=== PATIENT | male | born 1940 | race Caucasian/White ===

== ENCOUNTER 2019-10-21 12:01 | Emergency (ER) | payer MEDICARE ==
[~2019-10-21] VITALS: Ht 172.7 cm; Wt 94.6 kg
[2019-10-21 12:58] LABS: BASOPHILS # (AUTO) 0.1 10^3/uL (0.0-0.1); BASOPHILS % (AUTO) 1 % (0-10); EOSINOPHILS # (AUTO) 0.1 10^3/uL (0.0-0.3); EOSINOPHILS % (AUTO) 1 % (0-10); HEMATOCRIT 45 % (40-54); LYMPHOCYTES % (AUTO) 33 % (12-44); MEAN CORPUSCULAR HEMOGLOBIN 31 PG (25-34); MEAN CORPUSCULAR HGB CONC 33 G/DL (32-36); MEAN CORPUSCULAR VOLUME 94 FL (80-99); MEAN PLATELET VOLUME 10.7 FL (7.4-10.4); MONOCYTES # (AUTO) 0.6 X 10^3 (0.0-1.0); MONOCYTES % (AUTO) 5 % (0-12); NEUTROPHILS # (AUTO) 7.6 X 10^3 (1.8-7.8); NEUTROPHILS % (AUTO) 61 % (42-75); PLATELET COUNT 251 10^3/uL (130-400); WHITE BLOOD COUNT 12.4 10^3/uL (4.3-11.0)
[2019-10-21] MEDS ORDERED: LIDOCAINE 2% VISCOUS 15 ML UDC PO ONE (13:00)
[2019-10-21] MEDS ORDERED: FAMOTIDINE 20MG/2ML IV (PEPCID) IVP ONE (13:00)
--- NOTE | 2019-10-21 13:14 | ED General ---
General Chief Complaint: Abdominal/GI Problems Stated Complaint: HEARTBURN Source of Information: Patient History of Present Illness Date Seen by Provider: Oct 21, 2019 Time Seen by Provider: 12:30 Initial Comments Patient is an 79-year-old male with history of coronary artery disease who comes to the ER today complaining of reflux symptoms. He states he has had this problem in the past. Last evening, after eating, he had onset of severe belching and sour taste in his mouth along with some burning in the throat and mouth. The episode lasted about 30 minutes to 1 hour and did improve. He had an additional episode when he awoke this morning after eating breakfast. He denies chest pain. No fever, chills, cough. No shortness of breath. No abdominal pain. No nausea or vomiting. He has been at baseline health aside from these 2 episodes. Allergies and Home Medications Allergies Coded Allergies: tetanus and diphtheria toxoids (Verified Allergy, Unknown, 10/21/19) Home Medications Esomeprazole Magnesium 40 Mg Cap, 40 MG PO BID Take 1 tablet twice a day before meals for 7 days. Stop after that. You may repeat this in the future as needed for reflux symptoms. Prescribed by: SILVIANO HOANG on 10/21/19 7603 Patient Home Medication List Home Medication List Reviewed: Yes Review of Systems Review of Systems Constitutional: no symptoms reported EENTM: no symptoms reported Respiratory: no symptoms reported Cardiovascular: no symptoms reported Gastrointestinal: see HPI Musculoskeletal: no symptoms reported Skin: no symptoms reported Psychiatric/Neurological: Anxiety All Other Systems Reviewed Negative Unless Noted: Yes Past Hwwkekq-Flwsen-Skilks Hx Patient Social History Recent Foreign Travel: No Contact w/Someone Who Travel: No Physical Exam Vital Signs Capillary Refill : Height, Weight, BMI Height: '" Weight: lbs. oz. kg; BMI Method: General Appearance: No Apparent Distress, WD/WN HEENT: PERRL/EOMI Neck: Full Range of Motion, Normal Inspection Respiratory: Lungs Clear, Other (healed midline sternotomy incision) Cardiovascular: Regular Rate, Rhythm, No Edema Gastrointestinal: Normal Bowel Sounds, Non Tender, Soft Extremity: Normal Capillary Refill Neurologic/Psychiatric: Alert, Oriented x3 Skin: Normal Color, Warm/Dry Progress/Results/Core Measures Suspected Sepsis SIRS Temperature: Pulse: Respiratory Rate: Laboratory Tests 10/21/19 12:35: White Blood Count 12.4H Blood Pressure / Mean: Laboratory Tests 10/21/19 12:35: Platelet Count 251 10/21/19 13:00: Creatinine 1.36H, Total Bilirubin 0.4 Results/Orders Lab Results Laboratory Tests Test 10/21/19 12:35 10/21/19 13:00 Range/Units White Blood Count 12.4 H 4.3-11.0 10^3/uL Red Blood Count 4.83 4.35-5.85 10^6/uL Hemoglobin 15.0 13.3-17.7 G/DL Hematocrit 45 40-54 % Mean Corpuscular Volume 94 80-99 FL Mean Corpuscular Hemoglobin 31 25-34 PG Mean Corpuscular Hemoglobin Concent 33 32-36 G/DL Red Cell Distribution Width 13.0 10.0-14.5 % Platelet Count 251 130-400 10^3/uL Mean Platelet Volume 10.7 H 7.4-10.4 FL Neutrophils (%) (Auto) 61 42-75 % Lymphocytes (%) (Auto) 33 12-44 % Monocytes (%) (Auto) 5 0-12 % Eosinophils (%) (Auto) 1 0-10 % Basophils (%) (Auto) 1 0-10 % Neutrophils # (Auto) 7.6 1.8-7.8 X 10^3 Lymphocytes # (Auto) 4.0 1.0-4.0 X 10^3 Monocytes # (Auto) 0.6 0.0-1.0 X 10^3 Eosinophils # (Auto) 0.1 0.0-0.3 10^3/uL Basophils # (Auto) 0.1 0.0-0.1 10^3/uL Sodium Level 143 135-145 MMOL/L Potassium Level 4.6 3.6-5.0 MMOL/L Chloride Level 106 98-107 MMOL/L Carbon Dioxide Level 23 21-32 MMOL/L Anion Gap 14 5-14 MMOL/L Blood Urea Nitrogen 41 H 7-18 MG/DL Creatinine 1.36 H 0.60-1.30 MG/DL Estimat Glomerular Filtration Rate 50 BUN/Creatinine Ratio 30 Glucose Level 131 H 70-105 MG/DL Calcium Level 10.0 8.5-10.1 MG/DL Corrected Calcium 9.7 8.5-10.1 MG/DL Total Bilirubin 0.4 0.1-1.0 MG/DL Aspartate Amino Transf (AST/SGOT) 20 5-34 U/L Alanine Aminotransferase (ALT/SGPT) 18 0-55 U/L Alkaline Phosphatase 61 40-136 U/L Troponin I < 0.30 <0.30 NG/ML Total Protein 7.2 6.4-8.2 GM/DL Albumin 4.4 3.2-4.5 GM/DL My Orders Orders - SILVIANO HOANG DO Ed Iv/Invasive Line Start (10/21/19 12:48) Cbc With Automated Diff (10/21/19 12:48) Comprehensive Metabolic Panel (10/21/19 12:48) Troponin I Fs (10/21/19 12:48) Ekg Tracing (10/21/19 12:48) Chest 1 View Ap/Pa Only (10/21/19 12:49) Lidocaine 2% Viscous 15 Ml (Xylocaine Vi (10/21/19 13:00) Famotidine Injection (Pepcid Injection) (10/21/19 13:00) Antacid Suspension (Mylanta Suspension (10/21/19 13:15) Medications Given in ED Current Medications Medications Dose Ordered Sig/Adilene Route Start Time Stop Time Status Last Admin Dose Admin Al Hydrox/Mg Hydrox/Simethicone 30 ml ONCE ONCE PO 10/21/19 13:15 10/21/19 13:16 DC 10/21/19 13:13 30 ML Famotidine 20 mg ONCE ONCE IVP 10/21/19 13:00 10/21/19 13:01 DC 10/21/19 13:13 20 MG Lidocaine HCl 15 ml ONCE ONCE PO 10/21/19 13:00 10/21/19 13:01 DC 10/21/19 13:13 15 ML Vital Signs/I&O Capillary Refill : Progress Note : Time: 11:35 Progress Note Patient is seen and examined. His abdomen is soft and nontender. He denies chest pain. No shortness of breath. EKG is completed per nursing staff and is free from any findings concerning for ischemia. We will check troponin along with chest x-ray and abdominal pain labs. Will give GI cocktail and Pepcid for symptom relief. 13:35: All results are reviewed and discussed with the patient. Troponin is not elevated. EKG is reassuring. Patient was given some Pepcid and a GI cocktail in the ER and his symptoms are 100% resolved. He feels normal at this time. Given the chronicity of his symptoms, a single troponin is adequate. He is discharged home. He is given Nexium to take twice a day over the next 5 or 7 days. After that, he will stop the medication but may repeat this as needed. I recommended he take some Tums with each meal and use Maalox as needed. Avoid foods that aggravate his symptoms. Follow-up with his primary doctor or come back to the ER for any new or worsening symptoms. Patient was very thankful and appreciative of care received today. He was agreeable with the discharge plan of care. ECG Initial ECG Impression Date: Oct 21, 2019 Initial ECG Impression Time: 12:35 Initial ECG Rate: 77 Initial ECG Rhythm: Normal Sinus Departure Impression Primary Impression: Reflux esophagitis Disposition: 01 HOME, SELF-CARE Condition: Improved Departure-Patient Inst. Referrals: SELF,DESIREE SAUER (PCP/Family) Primary Care Physician Scripts Esomeprazole Magnesium (Nexium) 40 Mg Cap 40 MG PO BID for 7 Days, #60 CAP Take 1 tablet twice a day before meals for 7 days. Stop after that. You may repeat this in the future as needed for reflux symptoms. Prov: SILVIANO HOANG DO 10/21/19 SILVIANO HOANG DO Oct 21, 2019 13:14
[2019-10-21] MEDS ORDERED: ANTACID SUSP 30 ML UDC (MYLANTA) PO ONE (13:15)
--- NOTE | 2019-10-21 13:20 | Diagnostic Imaging Report ---
INDICATION: Chest pain. FINDINGS: The patient is status post previous sternotomy and coronary artery bypass grafting. Central pulmonary vascularity appears appropriate. There is mild elevation of left hemidiaphragm with some minimal left base atelectasis or infiltrate. There is no effusion. There is no pneumothorax. IMPRESSION: 1. Operative changes of previous bypass grafting. 2. Pulmonary vascularity appears appropriate. 3. Mild left hemidiaphragm elevation with mild left base atelectasis or infiltrate. Dictated by: Dictated on workstation # [id number]
[2019-10-21 13:23] LABS: ALANINE AMINOTRANSFERASE 18 U/L (0-55); ALBUMIN 4.4 GM/DL (3.2-4.5); ALKALINE PHOSPHATASE 61 U/L (40-136); BILIRUBIN,TOTAL 0.4 MG/DL (0.1-1.0); BUN/CREATININE RATIO 30; CARBON DIOXIDE 23 MMOL/L (21-32); CHLORIDE 106 MMOL/L (98-107); CREATININE SERUM 1.36 MG/DL (0.60-1.30); GFR ESTIMATED 50; GLUCOSE 131 MG/DL (70-105); POTASSIUM 4.6 MMOL/L (3.6-5.0); SODIUM 143 MMOL/L (135-145); TOTAL PROTEIN 7.2 GM/DL (6.4-8.2)
[2019-10-21] MEDS ORDERED: NF-ESOM40C PO (13:34)
[2019-10-21 13:53] VITALS: BP 152/86
== END 2019-10-21 13:53 | disposition home or self-care (01) ==
LOC: ER FS 12:04
DX: K21.0 Gastro-esophageal reflux disease with esophagitis (principal); Z88.7 Allergy status to serum and vaccine
CPT/HCPCS: 36415; 71045; 80053; 84484; 85025; 93005

== ENCOUNTER 2022-01-23 09:06 | Emergency (ER) | payer MEDICARE ==
[~2022-01-23 09:06] MED LIST: NF-ESOM40C PO
[2022-01-23] MEDS ORDERED: TETRACAINE 0.5% OPHTH SOLN 4 ML BTL (SINGLE DOSE ONLY) ONE (09:22)
[2022-01-23] MEDS ORDERED: FLUORESCEIN (FLUOR-I-STRIPS) 1 MG STRP ONE (09:22)
--- NOTE | 2022-01-23 09:23 | ED EENT ---
History of Present Illness General Chief Complaint: Eye Problems Stated Complaint: RIGHT EYE SOMETHING IN IT Source: patient Exam Limitations: no limitations History of Present Illness Date Seen by Provider: Jan 23, 2022 Time Seen by Provider: 09:08 Initial Comments 81-year-old male with no pertinent past medical history coming in feeling like he has something stuck in his right eye. He was moving some cobwebs above his head with a broom, and felt something on his right eye. This occurred shortly prior to arrival. Having constant, sharp pain in his right eye which is very irritating. Nothing really seems to make it better or worse. He states he feels like it is under his upper eyelid. He tried to flip his eyelid but was unable to. Does not wear contacts. Otherwise denies any other acute complaints including any blurry vision. Allergies and Home Medications Allergies Coded Allergies: tetanus and diphtheria toxoids (Verified Allergy, Unknown, 10/21/19) Patient Home Medication List Home Medication List Reviewed: Yes Esomeprazole Magnesium (Nexium) 40 Mg Cap, 40 MG PO BID Prescribed by: SILVIANO HOANG on 10/21/19 4234 Review of Systems Review of Systems Constitutional: No fever Eyes: See HPI Ears: No Symptoms Reported Nose: no symptoms reported Mouth: no symptoms reported Throat: no symptoms reported Respiratory: no symptoms reported Cardiovascular: no symptoms reported Gastrointestinal: no symptoms reported Musculoskeletal: no symptoms reported Skin: no symptoms reported Neurological: No Symptoms Reported Hematologic/Lymphatic: No Symptoms Reported Immunological/Allergic: no symptoms reported All Other Systems Reviewed Negative Unless Noted: Yes Past Etwolyn-Omlqhm-Udmgol Hx Patient Social History Tobacco Use?: No Seasonal Allergies Seasonal Allergies: No Past Medical History Surgeries: Yes Cardiac Respiratory: No Cardiac: Yes High Cholesterol, Hypertension Neurological: No Genitourinary: No Gastrointestinal: Yes Gastroesophageal Reflux Musculoskeletal: No Endocrine: No HEENT: No Cancer: No Psychosocial: Yes Anxiety Integumentary: No Blood Disorders: No Physical Exam Height, Weight, BMI Height: '" Weight: lbs. oz. kg; 31.00 BMI Method: General Appearance: WD/WN, no apparent distress Eyes: right eye other (Small speck of dark material on the underside of his right eyelid flushed away, small amount of uptake of fluorescein in the anterior portion of the eye consistent with a small corneal abrasion); left eye normal inspection; bilateral eye PERRL, bilateral eye EOMI Ears: bilateral ear auricle normal Nose: normal inspection Mouth/Throat: normal mouth inspection, pharynx normal Neck: non-tender, full range of motion, supple, normal inspection Cardiovascular: regular rate, rhythm, no edema, no murmur Respiratory: chest non-tender, lungs clear, normal breath sounds, no resp iratory distress, no accessory muscle use Gastrointestinal: normal bowel sounds, non tender, soft; No guarding Neurologic/Psychiatric: no motor/sensory deficits, alert, normal mood/affect Skin: normal color, warm/dry Procedures/Interventions Eye : Location: right eye Eye FB Removal: removal w/ cotton swab Eye Debridement: Other (saline flush x2) Eye Irrigated w/ Saline (ccs): 20 Anesthesia (gtts): Tetracaine Progress/Procedure Conclusion Foreign body removed and patient symptoms improved Progress/Results/Core Measures Results/Orders My Orders Orders - CHERYL MEDINA MD Fluorescein Strips ([id number]) (01/23/22 09:30) Tetracaine 0.5% Ophth Zully Sdv (Tetracai (01/23/22 09:30) Tetracaine 0.5% Ophth Zully Sdv (Tetracai (01/23/22 09:22) Fluorescein Strips ([id number]) (01/23/22 09:22) Progress Progress Note : Progress Note 81-year-old male with above history coming in due to foreign body sensation in the right eye. The eye was cleaned and lid flipped with a foreign body that was very small being seen flushed away. Symptoms improved afterwards. Afterwards did a fluorescein exam with blacklight showing a small corneal abrasion in the anterior portion of his eye. He does not wear contacts. We will start him on antibiotic drops and have him follow-up with his eye doctor as needed. Departure Impression Primary Impression: Corneal abrasion Qualified Codes: S05.01XA - Injury of conjunctiva and corneal abrasion without foreign body, right eye, initial encounter Additional Impression: Foreign body of eyelid, right Disposition: 01 HOME, SELF-CARE Condition: Improved Departure-Patient Inst. Decision time for Depature: 09:28 Referrals: SELF,DESIREE SAUER (PCP/Family) Primary Care Physician Patient Instructions: Foreign Body in Eye (DC) Add. Discharge Instructions: We did get the foreign body out of your eye, but you do have a small scratch on the surface of your eye. You will need to be on antibiotic drops for the next week. CHERYL MEDINA MD Jan 23, 2022 09:23
[2022-01-23] MEDS ORDERED: RX-OFLOXACIN 0.3% OPHTH SOLN 5 ML OP STA (09:29)
[2022-01-23] MEDS ORDERED: TETRACAINE 0.5% OPHTH SOLN 4 ML BTL (SINGLE DOSE ONLY) OP ONE (09:30)
[2022-01-23] MEDS ORDERED: FLUORESCEIN (FLUOR-I-STRIPS) 1 MG STRP OP ONE (09:30)
[2022-01-23 09:45] VITALS: BP 163/93
== END 2022-01-23 09:39 | disposition home or self-care (01) ==
LOC: EDUNIT# 09:06 → ER FS 09:07
DX: S05.01XA Injury of conjunctiva and corneal abrasion without foreign body, right eye, initial encounter (principal); X58.XXXA Exposure to other specified factors, initial encounter
CPT/HCPCS: 99281